=== PATIENT | female | born 1945 | race Caucasian/White ===

== ENCOUNTER 2023-08-22 10:30 | Observation (INO) | payer MEDICARE, SELFPAY ==
[2023-08-22] VITALS (24 sets, daily range): BP systolic 93–153; BP diastolic 51–81; PULSE 60–102; RESP 13–28; TEMP 36.2–36.7; O2SAT 96–100; BMI 16.6
--- NOTE | 2023-08-22 10:45 | DI.RAD.S_ITS ---
PROCEDURE: XR CHEST 1V INDICATIONS: Possible stroke TECHNIQUE: One view of the chest was acquired. COMPARISON: None. on 08/22/2023 at 11:14 FINDINGS: Surgical changes and devices: None. Lungs and pleura: Lungs are clear. No pleural effusions or pneumothorax. Mediastinum: Mediastinal contours appear normal. Heart size is normal. Bones and chest wall: No suspicious bony lesions. Overlying soft tissues appear unremarkable. IMPRESSION: No acute cardiopulmonary abnormality is seen. Approved by: Bailey Urias M.D.,Ph.D. on 08/22/2023 at 11:14
--- NOTE | 2023-08-22 10:45 | DI.CT.S_ITS ---
PROCEDURE: CT STROKE INDICATIONS: Positive BE-FAST, Stroke symptoms TECHNIQUE: Noncontrast 4.5 mm thick angled axial sections acquired from the foramen magnum to the vertex, with coronal reformats. For radiation dose reduction, the following was used: automated exposure control, adjustment of mA and/or kV according to patient size. COMPARISON: None. FINDINGS: Image quality: Diagnostic. CSF spaces: Basal cisterns are patent. No extra-axial fluid collections. Ventricles are normal in size and shape. Brain: No midline shift. No intracranial masses or hemorrhage. No area of hypodensity in a large vascular distribution to suggest acute infarction. Periventricular hypodensity consistent with chronic microvascular ischemic change. Age-related parenchymal loss. Skull and face: Calvarium and visualized facial bones are intact, without suspicious lesions. Sinuses: Visualized sinuses and mastoids are clear. IMPRESSION: No acute intracranial hemorrhage. Comment: Findings were discussed with Chance Finn at 11:05 a.m. This study fulfills neurological imaging criteria for inclusion or exclusion of acute stroke therapies based on available published neurological imaging guidelines. Dictated by: Wero Gallardo M.D. on 08/22/2023 at 11:02 Approved by: Wero Gallardo M.D. on 08/22/2023 at 11:06
--- NOTE | 2023-08-22 10:50 | ED.NEUROSD ---
HPI - Neuro Symptoms/Deficit General Chief Complaint: Neuro Symptoms/Deficit Stated Complaint: Dizzyness, memory loss Time Seen by Provider: 08/22/23 10:50 History of Present Illness HPI Narrative: 78-year-old female with no prior history of stroke, no chronic anticoagulation, was talking on the phone with people this morning, 830 this morning phone call apparently went well, but a subsequent phone call possibly 930 this morning apparently they had concerns and asked her to seek help, she walked next door to talk with her neighbor who is here to give history, that was proximally 10 10 this morning, neighbor thought that she had pretty clear speech, no weakness, but did seem to have some confusion about the events that happened earlier this morning, with regard to memory and what actually happened. Patient denies any trouble with speaking at this time, no trouble swallowing, no numbness to face arm or leg. She had some sensation in her left lower face that ?does not feel right? but did not feel that it was tingling or numb or weak. The quality of her speech seemed okay to her neighbor, no slurred speech, though the neighbor did volunteer that patient seemed distressed about not being able to remember the sequence of what was happening earlier today. No shaking or incontinence or seizure activity known. No fever chills, no cough or shortness of breath. Related Data Home Medications Medication Instructions Recorded Confirmed No Known Home Medications 08/22/23 08/22/23 Allergies Allergy/AdvReac Type Severity Reaction Status Date / Time gluten Allergy Verified 08/22/23 11:01 Patient History Social History household members: none Smoking Status: Former smoker Exam Narrative Exam Narrative: GENERAL: Well-developed patient, in mild distress. HEAD: Atraumatic. Normocephalic. EYES: Pupils equal round and reactive. Extraocular motions intact. No scleral icterus. No injection or drainage. ENT: Nose without bleeding, purulent drainage. Throat without erythema, tonsillar hypertrophy or exudate. Airway patent. NECK: Trachea midline. Non tender CARDIOVASCULAR: Regular rate and rhythm without murmurs, gallops, or rubs. RESPIRATORY: Clear to auscultation. Breath sounds equal bilaterally. No wheezes, rales, or rhonchi. GASTROINTESTINAL: Abdomen soft, non-tender, nondistended. EXTREMITIES: No edema or joint tenderness. BACK: Nontender without deformity or crepitance. No flank tenderness. NEURO: AOx3. Cranial nerves intact, pupils equal round reactive to light, no visual field deficits obvious, extraocular muscle intact, motor 5/5 facial upper extremities and lower extremities. Qxusrc-sg-yigw testing normal. Patient was able to name objects, recall 3 objects, perform serial 7. SKIN: No rash or erythema of visible areas Initial Vital Signs Initial Vital Signs: Vital Signs Temperature 98.0 F 08/22/23 10:35 Pulse Rate 102 H 08/22/23 10:35 Respiratory Rate 18 08/22/23 10:35 Blood Pressure 139/71 08/22/23 10:35 Pulse Oximetry 99 08/22/23 10:35 Oxygen Delivery Method Room Air 08/22/23 10:35 Course Orders Ordered: Acetaminophen (Acetaminophen 325 Mg Tablet) 650 mg PO Q6H PRN PRN Reason: Fever/Mild Pain (1-3) Aspirin (Aspirin Ec 81 Mg Tablet) 81 mg PO DAILY [facility] Atorvastatin Calcium (Atorvastatin 20 Mg Tablet) 20 mg PO BEDTIME [facility] Last Admin: 08/22/23 20:11 Dose: 20 mg Documented By: VIJAYA Heparin Sodium (Porcine) (Heparin 5,000 Unit/Ml Vial) 5,000 unit SUBCUT BID [facility] Last Admin: 08/22/23 20:11 Dose: 5,000 unit Documented By: VIJAYA Naloxone HCl (Naloxone 0.4 Mg/Ml Vial) 0.2 mg IV Q2MIN PRN PRN Reason: Opiate Reversal Ondansetron HCl (Ondansetron 4 Mg/2 Ml Inj) 4 mg IV NOW PRN PRN Reason: Nausea And Vomiting Ondansetron HCl (Ondansetron 4 Mg Odt) 4 mg SL NOW PRN PRN Reason: Nausea And Vomiting Discontinued Medications Aspirin (Aspirin Ec 325 Mg Tablet) 325 mg PO NOW ONE Stop: 08/22/23 13:00 Last Admin: 08/22/23 13:53 Dose: 325 mg Documented By: KATLYN Vital Signs Vital signs: Vital Signs - 8 hr 08/22/23 10:35 08/22/23 10:48 08/22/23 11:03 Temperature 98.0 F Pulse Rate 102 H 97 H 98 H Respiratory Rate 18 14 Blood Pressure 139/71 Pulse Oximetry 99 100 Oxygen Delivery Method Room Air 08/22/23 11:04 08/22/23 11:04 08/22/23 11:05 Temperature Pulse Rate 98 H Respiratory Rate 20 Blood Pressure 147/76 H 153/70 H Pulse Oximetry 100 Oxygen Delivery Method 08/22/23 11:05 08/22/23 11:10 08/22/23 11:10 Temperature Pulse Rate 100 H 95 H Respiratory Rate 19 28 H Blood Pressure 145/71 H Pulse Oximetry 100 100 Oxygen Delivery Method 08/22/23 11:15 08/22/23 11:15 08/22/23 11:20 Temperature Pulse Rate 95 H Respiratory Rate 23 Blood Pressure 141/71 H 136/74 Pulse Oximetry 100 Oxygen Delivery Method 08/22/23 11:20 08/22/23 11:25 08/22/23 11:25 Temperature Pulse Rate 91 H 92 H Respiratory Rate 13 16 Blood Pressure 132/77 Pulse Oximetry 100 98 Oxygen Delivery Method 08/22/23 11:30 08/22/23 11:30 08/22/23 11:35 Temperature Pulse Rate 79 Respiratory Rate 18 Blood Pressure 133/72 139/75 Pulse Oximetry 100 Oxygen Delivery Method 08/22/23 11:35 08/22/23 11:40 08/22/23 11:40 Temperature Pulse Rate 71 75 Respiratory Rate 24 21 Blood Pressure 132/65 Pulse Oximetry 99 99 Oxygen Delivery Method 08/22/23 11:45 08/22/23 11:45 08/22/23 11:50 Temperature Pulse Rate 81 80 Respiratory Rate 18 Blood Pressure 132/74 Pulse Oximetry 100 100 Oxygen Delivery Method 08/22/23 11:50 08/22/23 11:55 08/22/23 11:55 Temperature Pulse Rate 78 Respiratory Rate 27 H Blood Pressure 141/80 H 143/69 H Pulse Oximetry Oxygen Delivery Method 08/22/23 12:00 08/22/23 12:07 08/22/23 12:07 Temperature Pulse Rate 76 79 Respiratory Rate 18 Blood Pressure 146/70 H Pulse Oximetry 99 Oxygen Delivery Method 08/22/23 12:30 08/22/23 13:00 Temperature Pulse Rate 71 70 Respiratory Rate 19 19 Blood Pressure Pulse Oximetry 99 98 Oxygen Delivery Method MDM - Neuro Symptoms/Deficit Medical Records Attestation: I reviewed the patient's medical records. Lab Data Attestation: I reviewed the patient's lab results. 08/22/23 10:50 08/22/23 10:50 Labs: Lab Results 08/22/23 08/22/23 Range/Units 10:50 12:20 WBC 4.3 L (4.5-11.0) X10^3/uL RBC 4.07 (4.0-5.2) X10^6/uL Hgb 13.0 (12.0-16.0) g/dL Hct 38.5 (36-46) % MCV 94.7 (80-100) fL MCH 32.0 (26-34) PG MCHC 33.8 (30-36) % RDW 13.5 (11.6-14.8) % Plt Count 270 (150-400) X10^3/uL Neut % (Auto) 54.2 (50-75) % Lymph % (Auto) 29.0 (25-40) % [place] % (Auto) 13.2 (3-14) % Eos % (Auto) 2.3 (2-4) % Baso % (Auto) 1.3 (0-2) % Neut # (Auto) 2300 (9077-1623) /uL Lymph # (Auto) 1200 (2304-6415) /uL [place] # (Auto) 600 (0-900) /uL Eos # (Auto) 100 (0-450) /uL Baso # (Auto) 100 (0-100) /uL PT 11.7 (9.4-12.5) SECONDS INR 1.0 (0.9-1.3) APTT 32 (25.1-36.5) SECONDS Sodium 137 (137-145) mmol/L Potassium 3.4 (3.4-5.1) mmol/L Chloride 105 (98-107) mmol/L Carbon Dioxide 28 (22-32) mmol/L BUN 18 H (7-17) mg/dL Creatinine 0.66 (0.52-1.04) mg/dL Estimated GFR > 60 (>60) mL/min BUN/Creatinine Ratio 27.3 H (6-22) Glucose 130 H (80-110) mg/dL Calcium 9.2 (8.4-10.2) mg/dL Magnesium 1.9 (1.6-2.3) mg/dL Total Bilirubin 1.2 (0.2-1.3) mg/dL AST 36 (14-36) IU/L ALT 25 (<35) IU/L Alkaline Phosphatase 63 (38-126) U/L Total Creatine Kinase 68 (30-135) U/L Troponin I < 0.012 (0.01-0.034) ng/mL Total Protein 6.9 (6.3-8.2) g/dL Albumin 4.3 (3.5-5.0) g/dL Globulin 2.6 (1.7-4.1) g/dL Albumin/Globulin Ratio 1.7 (1.0-2.8) U Opiates 300ng/mL cut Negative (Negative) Ur Oxycodone Screen Negative (Negative) Urine Methadone Screen Negative (Negative) Ur Barbiturates Screen Negative (Negative) U Tricyclic Antidepress Negative (Negative) Ur Phencyclidine Scrn Negative (Negative) Ur Amphetamines Screen Negative (Negative) U Methamphetamines Scrn Negative (Negative) Ur MDMA Scrn (Ecstasy) Negative (Negative) U Benzodiazepines Scrn Negative (Negative) Urine Cocaine Screen Negative (Negative) U Marijuana (THC) Screen Positive H (Negative) Urine pH Normal (Normal) Urine Specific [place] Normal (Normal) Ur Creatinine Normal (Normal) Point of Care Testing Glucose POC 116 Imaging Data Chest x-ray: Radiologist's Impression: [address] [address] XRay Report Signed Patient: Angelique Arellano MR#: [id number] : 1945 Acct:[id number] Age/Sex: 78 / F Date of Service: 08/22/23 Loc: ED Accession Number: [id number] Procedure: XR chest 1V Ordering Provider: Chance Finn MD PROCEDURE: XR CHEST 1V INDICATIONS: Possible stroke TECHNIQUE: One view of the chest was acquired. COMPARISON: None. on 08/22/2023 at 11:14 FINDINGS: Surgical changes and devices: None. Lungs and pleura: Lungs are clear. No pleural effusions or pneumothorax. Mediastinum: Mediastinal contours appear normal. Heart size is normal. Bones and chest wall: No suspicious bony lesions. Overlying soft tissues appear unremarkable. IMPRESSION: No acute cardiopulmonary abnormality is seen. Approved by: Bailey Urias M.D.,Ph.D. on 08/22/2023 at 11:14 CT scan - head: Radiologist's Impression: [address] [address] [address] Scan Report Signed Patient: Angelique Arellano MR#: [id number] : 1945 Acct:[id number] Age/Sex: 78 / F Date of Service: 08/22/23 Loc: ED Accession Number: [id number] Procedure: CT Stroke Ordering Provider: Chance Finn MD PROCEDURE: CT STROKE INDICATIONS: Positive BE-FAST, Stroke symptoms TECHNIQUE: Noncontrast 4.5 mm thick angled axial sections acquired from the foramen magnum to the vertex, with coronal reformats. For radiation dose reduction, the following was used: automated exposure control, adjustment of mA and/or kV according to patient size. COMPARISON: None. FINDINGS: Image quality: Diagnostic. CSF spaces: Basal cisterns are patent. No extra-axial fluid collections. Ventricles are normal in size and shape. Brain: No midline shift. No intracranial masses or hemorrhage. No area of hypodensity in a large vascular distribution to suggest acute infarction. Periventricular hypodensity consistent with chronic microvascular ischemic change. Age-related parenchymal loss. Skull and face: Calvarium and visualized facial bones are intact, without suspicious lesions. Sinuses: Visualized sinuses and mastoids are clear. IMPRESSION: No acute intracranial hemorrhage. Comment: Findings were discussed with Chance Finn at 11:05 a.m. This study fulfills neurological imaging criteria for inclusion or exclusion of acute stroke therapies based on available published neurological imaging guidelines. Dictated by: Wero Gallardo M.D. on 08/22/2023 at 11:02 Approved by: Wero Gallardo M.D. on 08/22/2023 at 11:06 C: Radiologist's Impression: [address] [address] [address] Scan Report Signed Patient: Angelique Arellano MR#: [id number] : 1945 Acct:[id number] Age/Sex: 78 / F Date of Service: 08/22/23 Loc: ED Accession Number: [id number] Procedure: CT angio head and neck Ordering Provider: Chance Finn MD PROCEDURE: CT ANGIO HEAD AND NECK INDICATIONS: Code stroke TECHNIQUE: After the administration of intravenous contrast, 1 mm thick sections acquired from the aortic arch through the [place]. 3-dimensional xqhheod-cyqvfyxli-mvqkiuftrk (MIP) and/or volume rendering reformats were acquired of the central intracranial vasculature and neck separately. For radiation dose reduction, the following was used: automated exposure control, adjustment of mA and/or kV according to patient size. COMPARISON: CT noncontrast head 08/22/2023. FINDINGS: Image quality: Diagnostic. BRAIN: CSF spaces: Ventricles are normal in size and shape. Basal cisterns are patent. No extra-axial fluid collections. Brain: No significant abnormality of the brain can be seen. Skull and face: Calvarium and facial bones appear intact, without suspicious lesions. Orbits appear normal. Sinuses: Sinuses and mastoids are clear. HEAD CT ANGIOGRAPHY: Anterior circulation: Intracranial internal carotid arteries are normal in size and flow. The flow within the paired anterior cerebral arteries is normal and symmetric. The flow within the middle cerebral arteries is normal and symmetric. The anterior communicating artery is seen. No aneurysms are seen. Posterior circulation: Visualized portions of the vertebral arteries demonstrate normal caliber, and join to form a normal appearing basilar artery. Flow within the posterior cerebral arteries is normal and symmetric. No aneurysms are seen. NECK CT ANGIOGRAPHY: Carotid system: The great vessels demonstrate a conventional anatomy as they arise from the aortic arch. The origins of the common carotid arteries appear patent. The common carotid arteries demonstrate normal caliber and courses. The bifurcation regions are both widely patent. The internal carotid arteries demonstrate normal calibers and courses. Posterior circulation: The origins of the vertebral arteries both appear widely patent. The more superior extracranial portions of both vertebral arteries also demonstrate normal courses and calibers. They join to form a normal appearing basilar artery. Soft tissues: Visualized neck soft tissues demonstrate no suspicious abnormalities. Bones: No suspicious bony lesions. Visualized cervical spine appears normally aligned. IMPRESSION: No significant intracranial arterial abnormality is seen. No significant abnormality is seen within the arteries of the neck. Any quantitative measurements of stenosis were performed using NASCET criteria. Approved by: Bailey Urias M.D.,Ph.D. on 08/22/2023 at 11:20 ECG Data Attestation: I personally reviewed and interpreted this ECG as follows: Interpretation: Normal sinus rhythm with rate of 90, no obvious ST segment elevation or depression changes. Normal MS, QRS, QTC intervals. MDM Narrative Medical decision making narrative: 78-year-old female with multiple recent stressors, had some difficulty speaking on the phone with a friend after speaking with her sister earlier, then walked over to her neighbor's house, seemed confused about the order of events, but no difficulty with speech noted by the neighbor, here for further evaluation. No focal weakness, no focal numbness. CT head noncontrast, no acute changes, see radiology report. CTA head and neck vessels, no thromboses or stenoses, see radiology report. Case discussed with Neurology Dr Kim Pérez, who will review images and interview patient 1210, case discussed with Neurology Dr. Kim Pérez, who was able to review images, saw patient, found that there are old appearing white matter changes, could appear from old stroke, could be hypertension related, would advise admission for further workup brain MRI, TTE with bubble study, cardiac Holter monitoring as an outpatient, hemoglobin A1c, fasting lipids, BNP. Start aspirin. We will contact hospitalist regarding admission Critical Care Time Critical Care Time Critical Care Time: Yes Total Critical Care Time: 35 Attestation: The high probability of a clinically significant, sudden or life threatening deterioration of the [neuro, cerebrovascular] system(s) required my full and direct attention, intervention and personal management. The aggregate critical care time was [35] minutes. This time is in addition to time spent performing reported procedures but includes the following: [x] Data Review and interpretation [x] Patient assessment and monitoring of vital signs [x] Documentation [x] Medication orders and management Discharge Plan Departure Patient Disposition: Admitted as Observation Clinical Impression: Transient cerebral ischemia Admit Date/Time: 08/22/23 13:28 Admit Provider: Puneet Almeida
[2023-08-22 10:56] LABS: Add Manual Diff / Slide Review NO; Basophils Absolute Auto 100 /uL (0-100); Basophils Percent Auto 1.3 % (0-2); Eosinophils Absolute Auto 100 /uL (0-450); Eosinophils Percent Auto 2.3 % (2-4); Hematocrit 38.5 % (36-46); Lymphocytes Absolute Auto 1200 /uL (1100-4500); Mean Corpuscular HGB Conc 33.8 % (30-36); Mean Corpuscular Volume 94.7 fL (80-100); Monocytes Absolute Auto 600 /uL (0-900); Monocytes Percent Auto 13.2 % (3-14); Neutrophils Absolute Auto 2300 /uL (1500-7000); Neutrophils Percent Auto 54.2 % (50-75); Platelet Count 270 X10^3/uL (150-400); Red Blood Cell Count 4.07 X10^6/uL (4.0-5.2); Red Cell Distribution Width 13.5 % (11.6-14.8); White Blood Cell Count 4.3 X10^3/uL (4.5-11.0)
[2023-08-22 11:03] LABS: Prothrombin Time 11.7 SECONDS (9.4-12.5)
[2023-08-22 11:05] LABS: PTT Partial Thromboplastin Tim 32 SECONDS (25.1-36.5)
[2023-08-22 11:12] LABS: Alanine Aminotransferase 25 IU/L (<35); Albumin 4.3 g/dL (3.5-5.0); Albumin Globulin Ratio 1.7 (1.0-2.8); Alkaline Phosphatase 63 U/L (38-126); Aspartate Aminotransferase 36 IU/L (14-36); BUN Creatinine Ratio 27.3 (6-22); Bilirubin Total 1.2 mg/dL (0.2-1.3); Blood Urea Nitrogen 18 mg/dL (7-17); Calcium 9.2 mg/dL (8.4-10.2); Carbon Dioxide 28 mmol/L (22-32); Chloride 105 mmol/L (98-107); Creatine Kinase 68 U/L (30-135); Estimated Glomerular Filt Rate > 60 mL/min (>60); Globulin 2.6 g/dL (1.7-4.1); Glucose 130 mg/dL (80-110); HEMOLYSIS < 15 (0-50); Magnesium 1.9 mg/dL (1.6-2.3); Potassium 3.4 mmol/L (3.4-5.1); Sodium 137 mmol/L (137-145); Total Protein 6.9 g/dL (6.3-8.2)
[2023-08-22 11:23] LABS: Troponin I < 0.012 ng/mL (0.01-0.034)
[2023-08-22 12:42] LABS: UR Morphine/Opiate cutoff 300 Negative (Negative); Ur Creatinine Normal (Normal); Ur Specific Gravity Normal (Normal); Urine Amphetamines Negative (Negative); Urine Barbiturates Negative (Negative); Urine Benzodiazepines Negative (Negative); Urine Cocaine Negative (Negative); Urine MDMA Negative (Negative); Urine Methadone Negative (Negative); Urine Methamphetamines Negative (Negative); Urine Oxycodone Negative (Negative); Urine Phencyclidine Negative (Negative); Urine Tetrahydrocannabinol Positive (Negative); Urine Tricyclic Antidepressant Negative (Negative); Urine pH Normal (Normal)
[2023-08-22] MEDS: ASPIRIN EC 325 MG TABLET PO (13:53)
--- NOTE | 2023-08-22 15:18 | DI.MRI.S_ITS ---
PROCEDURE: MR HEAD/BRAIN WO CON INDICATIONS: TIA (aphasia) TECHNIQUE: Non-contrast axial T1 spin echo, axial T2 fast spin echo, sagittal and axial FLAIR, coronal T2 fast spin echo, axial gradient echo, axial diffusion and ADC through the brain. COMPARISON: CT noncontrast head 08/22/2023, CT angiogram head and neck 08/22/2023. FINDINGS: Image quality: Diagnostic. CSF spaces: Ventricles appear symmetric in size and shape. Basal cisterns are patent. No extra-axial fluid collections. Brain: No intracranial bleeds or mass effects. There is cerebral volume loss for age. There are periventricular and deep white matter chronic small vessel ischemic changes. Brainstem appears normal. Diffusion-weighted images show no acute infarct. No chronic ischemic insults. Normal intravascular flow voids are present. Skull and face: Calvarial bone marrow is normal in signal. Orbits are normal. Sinuses: Sinuses and mastoids are clear. IMPRESSION: No acute intracranial abnormality. Approved by: Bailey Urias M.D.,Ph.D. on 08/22/2023 at 16:09
--- NOTE | 2023-08-22 15:19 | DI.ECHO.S_ITS ---
[facility]+ [facility] : : [address] : : [place] : : [id number] : : Phone: [phone] Echocardiogram Report + + :Name: SRINI VICENTE Study Date: 08/22/2023 Height: 65 in : :[facility] ReadingLocation: Weight: 100 lb : : Gender: Female BSA: 1.5 m2 : :: 1945 Age: 78 yrs BP: 127/65 mmHg: :Reason For Study: TIA : :Ordering Physician: RANGEL, : :BILL Still Performed By: Sean Mcmanus : :Referring: BILL MULTANI : + + Interpretation Summary Normal sinus rhythm. Normal LV size and wall thickness. Normal wall motion and LV systolic function. Ejection fraction 60-65%. Normal chamber sizes. No significant valvular abnormalities. No source of embolism identified. Procedure: A two-dimensional transthoracic echocardiogram with color flow and Doppler was performed. The study quality was technically adequate. Most of the acoustic windows were suboptimal, but the best imaging was obtained from the subcostal window. The patient was in sinus rhythm with heart rates between 65-70 bpm during the exam. Left Ventricle: The left ventricle is normal in size and wall thickness. The ejection fraction is estimated to be 60-65%. Right Ventricle: The right ventricle is normal size. The right ventricular systolic function is normal. Atria: The left atrial size is normal. The right atrium is normal in size. The interatrial septum grossly appears intact with no obvious evidence for an atrial septal defect. Mitral Valve: The mitral valve is normal. There is no mitral valve stenosis. There is trace mitral regurgitation. Aortic Valve: The aortic valve is trileaflet. There is no aortic valve stenosis. No aortic regurgitation is present. Tricuspid Valve: The tricuspid valve is normal. There is no tricuspid stenosis. There is mild tricuspid regurgitation. The right ventricular systolic pressure is estimated to be at least 26.4 mmHg based on an estimated right atrial pressure of 8 mm Hg. Pulmonic Valve: The pulmonic valve is not well visualized. There is no pulmonic valvular stenosis. There is a trace or physiologic amount of pulmonic regurgitation. Great Vessels: The aortic root is normal size. The ascending aorta could not be visualized. The IVC is dilated (diameter is greater than 2.1 cm) yet it collapses greater than 50% with a sniff. This suggests a right atrial pressure of 8 mm Hg. A mass or thrombus appeared to be present in the inferior vena cava. Pericardium/ Pleura There is no pericardial effusion. There is no pleural effusion. MMode/2D Measurements & Calculations LVIDd: 4.1 cm LVOT diam: 1.8 cm LVIDs: 2.7 cm Ao root diam: 3.2 cm FS: 34.4 % asc Aorta Diam: 3.0 cm IVSd: 0.82 cm LVPWd: 0.90 cm LV ayala. diameter/BSA (cm/m^2): 2.8 LV sys. diameter/BSA (cm/m^2): 1.8 LA A2 area: 10.6 cm2 RA long axis: 4.4 cm LA A4 area: 12.2 cm2 RA area: 15.9 cm2 LA length (vol): 4.4 cm RA vol: 48.1 ml LA vol: 24.8 ml RA : 32.6 ml/m2 LA vol index: 16.8 ml/m2 IVC diam: 2.2 cm RVD1 (basal): 3.1 cm RVD2 (mid): 2.5 cm TAPSE: 2.8 cm Doppler Measurements & Calculations Ao V2 max: 118.1 cm/sec LVOT Max Jeff: 80.8 cm/sec Ao V2 mean: 85.1 cm/sec LV V1 max P.6 mmHg Ao max P.6 mmHg LV V1 VTI: 18.6 cm Ao mean P.1 mmHg SELAM(I,D): 1.9 cm2 Ao V2 VTI: 25.9 cm SELAM(V,D): 1.8 cm2 sev ratio: 0.72 SELAM indexed to BSA (cm^2/m^2): 1.3 MV E max jeff: 79.5 cm/sec TR max jeff: 214.2 cm/sec MV A max jeff: 71.9 cm/sec TR max P.4 mmHg MV E/A: 1.1 PA V2 max: 69.4 cm/sec MV dec time: 0.25 sec PA V2 mean: 51.2 cm/sec PA mean P.1 mmHg PA pr(Accel): 44.7 mmHg SV(LVOT): 49.1 ml Electronically signed by: Bryanna Ibarra M.D. on Reading Physician:08/22/2023 06:21 PM
--- NOTE | 2023-08-22 15:38 | PM.HP.1 ---
History of Present Illness History of Present Illness Date Patient Seen: 08/22/23 Chief complaint: Dizzyness, memory loss Narrative: From ED doctor: 78-year-old female with no prior history of stroke, no chronic anticoagulation, was talking on the phone with people this morning, 830 this morning phone call apparently went well, but a subsequent phone call possibly 930 this morning apparently they had concerns and asked her to seek help, she walked next door to talk with her neighbor who is here to give history, that was proximally 10 10 this morning, neighbor thought that she had pretty clear speech, no weakness, but did seem to have some confusion about the events that happened earlier this morning, with regard to memory and what actually happened. Patient denies any trouble with speaking at this time, no trouble swallowing, no numbness to face arm or leg. She had some sensation in her left lower face that ?does not feel right? but did not feel that it was tingling or numb or weak. The quality of her speech seemed okay to her neighbor, no slurred speech, though the neighbor did volunteer that patient seemed distressed about not being able to remember the sequence of what was happening earlier today. No shaking or incontinence or seizure activity known. No fever chills, no cough or shortness of breath. Additional information: [facility] Social History Smoking Status: Former smoker Meds Home Medications and Allergies Home Medications Medication Instructions Recorded Confirmed Type No Known Home Medications 08/22/23 08/22/23 History Allergies Allergy/AdvReac Type Severity Reaction Status Date / Time gluten Allergy Verified 08/22/23 11:01 Review of Systems Review of Systems Narrative: All else reviewed and otherwise unremarkable except as noted in the history and physical. Exam Vital Signs (past 8 hours): - 08/22/23 10:35 08/22/23 10:48 08/22/23 11:03 Temperature 98.0 F Pulse Rate 102 H 97 H 98 H Respiratory Rate 18 14 Blood Pressure 139/71 Pulse Oximetry 99 100 Oxygen Delivery Method Room Air Oxygen Flow Rate 08/22/23 11:04 08/22/23 11:04 08/22/23 11:05 Temperature Pulse Rate 98 H Respiratory Rate 20 Blood Pressure 147/76 H 153/70 H Pulse Oximetry 100 Oxygen Delivery Method Oxygen Flow Rate 08/22/23 11:05 08/22/23 11:10 08/22/23 11:10 Temperature Pulse Rate 100 H 95 H Respiratory Rate 19 28 H Blood Pressure 145/71 H Pulse Oximetry 100 100 Oxygen Delivery Method Oxygen Flow Rate 08/22/23 11:15 08/22/23 11:15 08/22/23 11:20 Temperature Pulse Rate 95 H Respiratory Rate 23 Blood Pressure 141/71 H 136/74 Pulse Oximetry 100 Oxygen Delivery Method Oxygen Flow Rate 08/22/23 11:20 08/22/23 11:25 08/22/23 11:25 Temperature Pulse Rate 91 H 92 H Respiratory Rate 13 16 Blood Pressure 132/77 Pulse Oximetry 100 98 Oxygen Delivery Method Oxygen Flow Rate 08/22/23 11:30 08/22/23 11:30 08/22/23 11:35 Temperature Pulse Rate 79 Respiratory Rate 18 Blood Pressure 133/72 139/75 Pulse Oximetry 100 Oxygen Delivery Method Oxygen Flow Rate 08/22/23 11:35 08/22/23 11:40 08/22/23 11:40 Temperature Pulse Rate 71 75 Respiratory Rate 24 21 Blood Pressure 132/65 Pulse Oximetry 99 99 Oxygen Delivery Method Oxygen Flow Rate 08/22/23 11:45 08/22/23 11:45 08/22/23 11:50 Temperature Pulse Rate 81 80 Respiratory Rate 18 Blood Pressure 132/74 Pulse Oximetry 100 100 Oxygen Delivery Method Oxygen Flow Rate 08/22/23 11:50 08/22/23 11:55 08/22/23 11:55 Temperature Pulse Rate 78 Respiratory Rate 27 H Blood Pressure 141/80 H 143/69 H Pulse Oximetry Oxygen Delivery Method Oxygen Flow Rate 08/22/23 12:00 08/22/23 12:07 08/22/23 12:07 Temperature Pulse Rate 76 79 Respiratory Rate 18 Blood Pressure 146/70 H Pulse Oximetry 99 Oxygen Delivery Method Oxygen Flow Rate 08/22/23 12:30 08/22/23 13:00 08/22/23 13:30 Temperature Pulse Rate 71 70 71 Respiratory Rate 19 19 21 Blood Pressure 126/81 Pulse Oximetry 99 98 98 Oxygen Delivery Method Room Air Oxygen Flow Rate 08/22/23 13:55 08/22/23 13:55 08/22/23 14:45 Temperature 97.4 F L Pulse Rate 83 74 Respiratory Rate 24 16 Blood Pressure 126/81 127/65 Pulse Oximetry 99 99 Oxygen Delivery Method Oxygen Flow Rate 08/22/23 14:45 Temperature 97.4 F L Pulse Rate 74 Respiratory Rate 16 Blood Pressure 127/65 Pulse Oximetry 99 Oxygen Delivery Method Oxygen Flow Rate 0 Oxygen Delivery Method Room Air Oxygen Flow Rate 0 Narrative Exam Narrative: NAD, alert and oriented, fluent speech, calm. Normocephalic skull, EOMI, anicteric sclera, symmetric pupils. Oropharynx unremarkable, no droop. Neck supple, midline trachea, no adenopathy. Lungs clear, normal rate and effort. Heart regular, no murmur gallop or rub. Abdomen is soft, non distended and non tender. Extremities are free of edema. Skin is free of rash or lesions. Joints are not swollen or deformed. Judgment appears to be normal. Objective ECG Impression: NSR Imaging CT scan - head: Radiologist's impression: CT brain: No acute intracranial hemorrhage. Comment: Findings were discussed with Chance Finn at 11:05 a.m. This study fulfills neurological imaging criteria for inclusion or exclusion of acute stroke therapies based on available published neurological imaging guidelines. CTA: No significant intracranial arterial abnormality is seen. No significant abnormality is seen within the arteries of the neck. Chest x-ray: Radiologist's impression: No acute cardiopulmonary abnormality is seen. Labs 08/22/23 10:50 08/22/23 10:50 Labs: Laboratory Results - last 24 hr 08/22/23 08/22/23 10:50 12:20 WBC 4.3 L RBC 4.07 Hgb 13.0 Hct 38.5 MCV 94.7 MCH 32.0 MCHC 33.8 RDW 13.5 Plt Count 270 Neut % (Auto) 54.2 Lymph % (Auto) 29.0 [place] % (Auto) 13.2 Eos % (Auto) 2.3 Baso % (Auto) 1.3 Neut # (Auto) 2300 Lymph # (Auto) 1200 [place] # (Auto) 600 Eos # (Auto) 100 Baso # (Auto) 100 PT 11.7 INR 1.0 APTT 32 Sodium 137 Potassium 3.4 Chloride 105 Carbon Dioxide 28 BUN 18 H Creatinine 0.66 Estimated GFR > 60 BUN/Creatinine Ratio 27.3 H Glucose 130 H Calcium 9.2 Magnesium 1.9 Total Bilirubin 1.2 AST 36 ALT 25 Alkaline Phosphatase 63 Total Creatine Kinase 68 Troponin I < 0.012 Total Protein 6.9 Albumin 4.3 Globulin 2.6 Albumin/Globulin Ratio 1.7 U Opiates 300ng/mL cut Negative Ur Oxycodone Screen Negative Urine Methadone Screen Negative Ur Barbiturates Screen Negative U Tricyclic Antidepress Negative Ur Phencyclidine Scrn Negative Ur Amphetamines Screen Negative U Methamphetamines Scrn Negative Ur MDMA Scrn (Ecstasy) Negative U Benzodiazepines Scrn Negative Urine Cocaine Screen Negative U Marijuana (THC) Screen Positive H Urine pH Normal Urine Specific [place] Normal Ur Creatinine Normal Assessment & Plan Assessment & Plan narrative: 1. Transient confusion and possible speech difficulties, resolved upon presentation. 2. Ovarian cyst, presnt on admission and stable. PLAN: -MRI brain r/o CVA -ECHO r/o clot, PFO. -telemetry.
--- NOTE | 2023-08-22 15:54 | PT.IIE ---
Physical Therapy Inpatient Evaluation/Re-Eval M1 PT/OT-IP Prior Functional Status Start: 08/22/23 15:23 Freq: NEEDED Status: Active Protocol: Document 08/22/23 15:15 MB (Rec: 08/22/23 15:54 MB [id number]) Medical Review Prior Functional Status Medical History Reviewed Yes Diet/Fluid Consistency Regular Communication WNLs Mobility and Gait I Activities of Daily Living and IADL's I Prior Functional Level (Other details) I Social History Household Members none Number of Floors (Floors) Two Floors Number of Stairs To Enter/Railing? Pt lives in town house in [facility] [address] [facility] and she has two floors, left rail Home Environment Standard Height Toilet,Walk in Shower,Tub/Shower Employment Status Retired Additional Social History Comment Pt is very active, bikes and hikes M2 PT-IP Current Condition Start: 08/22/23 15:23 Freq: NEEDED Status: Active Protocol: Document 08/22/23 15:15 MB (Rec: 08/22/23 15:54 [id number]) Physical Therapy Current Condition Current Condition Evaluation Date 08/22/23 Treatment Diagnosis Cognitive changes M3 PT-IP Subjective Start: 08/22/23 15:23 Freq: NEEDED Status: Active Protocol: Document 08/22/23 15:15 MB (Rec: 08/22/23 15:54 MB [id number]) Subjective Physical Therapy Visit Type Type Initial Evaluation Visit Start Time 15:15 Visit Stop Time 15:30 Number of EQUINE VET Visits 0 Physical Therapy Visit Comments Patient Comments Pt states she has no further complaints but she is concernd about her cognitive changes that happened this morning. She denies dizziness. She states that she has been under a lot of stress as she has a total hysterectomy scheduled in a week and a half d/t ovarian cyst on the left. She feels that in general, she manages her stress well. Therapy Pain Assessment Pain When Pain Assessed At Rest Pain Present Pain Present Denied Pain M4 PT-IP Mobility and Gait Start: 08/22/23 15:23 Freq: NEEDED Status: Active Protocol: Document 08/22/23 15:15 MB (Rec: 08/22/23 15:54 [id number]) PT-Bed Mobility Assessment Rolling Level of Assist Independent Supine to Sit Supine to Sit Independent Scooting Scooting to Edge of Bed Independent Scooting Up and Down in Bed Independent PT-Transfer Assessment Sit to and From Stand Sit to and from Stand Independent Equipment Transfer Assistive Device Gait Belt Orthotic/Prosthetic Devices or Brace: No Transfers Transfer Destination Toilet Transfer Technique Ambulation Transfer Ability Level of Assist Independent Gait Assessment Gait Gait Assistance Required: Independent Distance (Feet) 100 Able to Maintain Weight Bearing Status Yes During Gait Assistive Devices Assistive Device Gait Belt Orthotic/Prosthetic Devices or Brace: No Gait Deviations General Gait Pattern Within Normal Limits Comments Gait Comments Forward, backward, gait with EC, turning, steps all I and no LOB Stair Climbing Assessment Evaluation Level of Assist On Stairs Independent Devices Stair Climbing Assistive Devices Left Railing Technique/Endurance Stair Climbing Direction Ascend and Descend Stair Climbing Technique Step Over Step Number of Steps Climbed 3 Query Text: Stair Climbing Set # Repetitions (reps) 2 PT-Balance Assessment Sitting Balance and Reactions Static Sitting Balance Ability Normal Standing Balance and Reactions Static Standing Balance Ability Normal Dynamic Standing Balance Ability Normal M5 PT-IP Objective Assessments Start: 08/22/23 15:23 Freq: NEEDED Status: Active Protocol: Document 08/22/23 15:15 MB (Rec: 08/22/23 15:54 MB [id number]) Orientation Orientation/Cognition Level of Alertness Alert Orientation Name,Age,Birthday,Month,Date, Year,Day of Week,Place, Situation Language Function Ability No Deficits Noted Safety Awareness Understands Safety Issues Memory Description No Deficits Noted Gross Range of Motion Upper Extremity ROM Assessment Within Functional Limits Lower Extremity ROM Assessment Within Functional Limits Strength Upper Extremity Strength Assessment Within Functional Limits Lower Extremity Strength Assessment Within Functional Limits Coordination Assessment Gross Coordination Gross Coordination WNL Assessment Finger to Nose Test Minimal Impairment Pronation/Supination Test Minimal Impairment Sensation Assessment Sensation Gross Sensation WNL Muscle Tone Muscle Tone WNL Yes M7 PT-IP Assessment and Plan Start: 08/22/23 15:23 Freq: NEEDED Status: Active Protocol: Document 08/22/23 15:15 MB (Rec: 08/22/23 15:54 MB [id number]) PT Summary Assessment and Plan Potential Rehabilitation Potential Excellent Status of Condition at Evaluation Stable Summary Progress Towards Goals Safe For Discharge,Goals Met Assessment Summary Pt is a 78 y/o female who presents with normal mobility, gait and balance. She has mild changes in coordination with UE coordination testing today. No further acute PT needs, d/c PT. Frequency of Treatment Frequency Of Treatment Discharge Weight Bearing Status Weight Bearing Status Weight Bear as Tolerated Recommendations To Nursing Amount of Assist Needed Independent Discharge Recommendations PT Discharge Recommendations Home with Assistance Transportation Needs at Discharge Private Vehicle
[2023-08-22] MEDS: HEPARIN 5,000 UNIT/ML VIAL 5000 UNIT SUBCUT (20:11)
[2023-08-22] MEDS: ATORVASTATIN 20 MG TABLET PO (20:11)
[2023-08-23 03:00] VITALS: BP 97/50; PULSE 71; RESP 16; TEMP 36.3; O2SAT 97
[2023-08-23 05:21] LABS: Add Manual Diff / Slide Review NO; Basophils Absolute Auto 100 /uL (0-100); Basophils Percent Auto 1.4 % (0-2); Eosinophils Absolute Auto 100 /uL (0-450); Hematocrit 36.7 % (36-46); Hemoglobin 12.4 g/dL (12.0-16.0); Lymphocytes Absolute Auto 1200 /uL (1100-4500); Lymphocytes Percent Auto 29.6 % (25-40); Mean Corpuscular HGB Conc 33.8 % (30-36); Mean Corpuscular Hemoglobin 31.9 PG (26-34); Mean Corpuscular Volume 94.4 fL (80-100); Monocytes Absolute Auto 400 /uL (0-900); Monocytes Percent Auto 9.6 % (3-14); Neutrophils Absolute Auto 2300 /uL (1500-7000); Neutrophils Percent Auto 56.4 % (50-75); Platelet Count 254 X10^3/uL (150-400); Red Blood Cell Count 3.89 X10^6/uL (4.0-5.2); Red Cell Distribution Width 13.3 % (11.6-14.8); White Blood Cell Count 4.1 X10^3/uL (4.5-11.0)
[2023-08-23 05:31] LABS: BUN Creatinine Ratio 21.4 (6-22); Blood Urea Nitrogen 15 mg/dL (7-17); Calcium 8.9 mg/dL (8.4-10.2); Carbon Dioxide 28 mmol/L (22-32); Chloride 110 mmol/L (98-107); Estimated Glomerular Filt Rate > 60 mL/min (>60); Glucose 91 mg/dL (80-110); HEMOLYSIS < 15 (0-50); Potassium 3.8 mmol/L (3.4-5.1); Sodium 138 mmol/L (137-145)
--- NOTE | 2023-08-23 08:22 | PM.DS.1 ---
History of Present Illness History of Present Illness Chief complaint: Dizzyness, memory loss Narrative: From ED doctor: 78-year-old female with no prior history of stroke, no chronic anticoagulation, was talking on the phone with people this morning, 830 this morning phone call apparently went well, but a subsequent phone call possibly 930 this morning apparently they had concerns and asked her to seek help, she walked next door to talk with her neighbor who is here to give history, that was proximally 10 10 this morning, neighbor thought that she had pretty clear speech, no weakness, but did seem to have some confusion about the events that happened earlier this morning, with regard to memory and what actually happened. Patient denies any trouble with speaking at this time, no trouble swallowing, no numbness to face arm or leg. She had some sensation in her left lower face that ?does not feel right? but did not feel that it was tingling or numb or weak. The quality of her speech seemed okay to her neighbor, no slurred speech, though the neighbor did volunteer that patient seemed distressed about not being able to remember the sequence of what was happening earlier today. No shaking or incontinence or seizure activity known. No fever chills, no cough or shortness of breath. Additional information: Discharge Providers Provider Date of admission: 08/22/23 13:28 Discharge Date: 08/23/23 Consults: 08/22/23 15:18 Consult to Discharge Planning Routine Comment: Consult to Occupational Therapy Evaluate & Treat Comment: Physician Instructions: Evaluate and treat Consult to Physical Therapy Evaluate & Treat Comment: Physician Instructions: Evaluate and Treat Consult to Speech Therapy Evaluate & Treat Comment: Physician Instructions: Evaluate and treat Discharge provider: Puneet Almeida MD Summary Hospital Course Discharge Diagnosis: 1. Transient confusion and possible speech difficulties, resolved upon presentation. 2. Ovarian cyst, presnt on admission and stable. Hospital Course: She was admitted with a transient episode of confusion lasting for a short time. There is a question of speech issues but this really was not confirmed. She was observed overnight and had no recurrent neurologic symptoms. Evaluation with MRI,, CTA, an echo was unremarkable. They are really isn't enough to support diagnosis of TIA recommendation of aspirin and statin. She is neurologically normal and stable for discharge on August 22. Status at Discharge Cognitive/behavioral status at discharge: oriented Functional status at discharge: independent ambulation Overall status at discharge: patient is back to baseline Time Spent with Patient Time spent: Greater than 30 minutes Exam Vital Signs (past 8 hours): - 08/23/23 03:00 Temperature 97.4 F L Pulse Rate 71 Respiratory Rate 16 Blood Pressure 97/50 L Pulse Oximetry 97 Oxygen Delivery Method Room Air Oxygen Flow Rate 0 Narrative Exam Narrative: No acute distress, breathing comfortably. There was speech is normal. Moving arms and legs normally, no facial droop. Normal judgment, and thought content. Objective Imaging Multiple studies:: Radiologist's impression: CT brain unremarkable CT angiogram of head and neck unremarkable. MRI brain unremarkable. Echo unremarkable, normal EF and no valvular abnormalities. Labs 08/23/23 04:50 08/23/23 04:50 Labs: Laboratory Results - last 24 hr 08/22/23 08/22/23 08/23/23 10:50 12:20 04:50 WBC 4.3 L 4.1 L RBC 4.07 3.89 L Hgb 13.0 12.4 Hct 38.5 36.7 MCV 94.7 94.4 MCH 32.0 31.9 MCHC 33.8 33.8 RDW 13.5 13.3 Plt Count 270 254 Neut % (Auto) 54.2 56.4 Lymph % (Auto) 29.0 29.6 [place] % (Auto) 13.2 9.6 Eos % (Auto) 2.3 3.0 Baso % (Auto) 1.3 1.4 Neut # (Auto) 2300 2300 Lymph # (Auto) 1200 1200 [place] # (Auto) 600 400 Eos # (Auto) 100 100 Baso # (Auto) 100 100 PT 11.7 INR 1.0 APTT 32 Sodium 137 138 Potassium 3.4 3.8 Chloride 105 110 H Carbon Dioxide 28 28 BUN 18 H 15 Creatinine 0.66 0.70 Estimated GFR > 60 > 60 BUN/Creatinine Ratio 27.3 H 21.4 Glucose 130 H 91 Calcium 9.2 8.9 Magnesium 1.9 Total Bilirubin 1.2 AST 36 ALT 25 Alkaline Phosphatase 63 Total Creatine Kinase 68 Troponin I < 0.012 Total Protein 6.9 Albumin 4.3 Globulin 2.6 Albumin/Globulin Ratio 1.7 U Opiates 300ng/mL cut Negative Ur Oxycodone Screen Negative Urine Methadone Screen Negative Ur Barbiturates Screen Negative U Tricyclic Antidepress Negative Ur Phencyclidine Scrn Negative Ur Amphetamines Screen Negative U Methamphetamines Scrn Negative Ur MDMA Scrn (Ecstasy) Negative U Benzodiazepines Scrn Negative Urine Cocaine Screen Negative U Marijuana (THC) Screen Positive H Urine pH Normal Urine Specific [place] Normal Ur Creatinine Normal PFSH Social History household members: none Smoking Status: Former smoker Discharge Assessment & Plan Assessment and Plan Assessment: 1. Transient confusion, resolved. 2. Ovarian cyst, stable. Plan of Treatment: She is stable for discharge and will follow up with PCP as needed. Discharge Plan Discharge Plan Patient Disposition: Home Provider Discharge Comment: Stable for discharge home. No convincing evidence of TIA. Discharge orders & Medications Prescriptions: No Action No Known Home Medications Medication counseling provided by Pharmacist: No Discharge Health Status Multidrug resistant organism: No MDRO Diet/Activity/Treatments Diet: Regular Activity: As tolerated Visit Report/Discharge Packet Stand Alone Forms: Patient Portal/API, Stroke Signs & Symptoms Discharge Data Attending Provider: Puneet Almeida Admit Date/Time: 08/22/23 13:28
[2023-08-23 09:00] VITALS: BP 99/53; PULSE 74; RESP 17; TEMP 36.2; O2SAT 97
--- NOTE | 2023-08-23 09:05 | OT.IP.EVAL ---
Occupational Therapy Inpatient Evaluation/Re-Eval M1 PT/OT-IP Prior Functional Status Start: 08/23/23 08:55 Freq: NEEDED Status: Active Protocol: Document 08/23/23 08:55 [facility] (Rec: 08/23/23 09:05 [facility] [id number]) Medical Review Prior Functional Status Medical History Reviewed Yes Diet/Fluid Consistency Regular Communication WNLs Mobility and Gait I Activities of Daily Living and IADL's I Prior Functional Level (Other details) I Social History Household Members none Number of Floors (Floors) Two Floors Number of Stairs To Enter/Railing? Pt lives in town house in [facility] and she has two floors, left rail Home Environment Standard Height Toilet,Walk in Shower,Tub/Shower Employment Status Retired Additional Social History Comment Pt is very active, bikes and hikes M2 OT-IP Current Condition Start: 08/23/23 08:55 Freq: Status: Active Protocol: Document 08/23/23 08:55 [facility] (Rec: 08/23/23 09:05 [facility] [id number]) Occupational Therapy Current Condition Current Condition Evaluation Date 08/23/23 Treatment Diagnosis Transient confusion Diagnosis Onset Date 08/22/23 M3 OT- IP Subjective and Pain Start: 08/23/23 08:55 Freq: Status: Active Protocol: Document 08/23/23 08:55 [facility] (Rec: 08/23/23 09:05 [facility] [id number]) OT- Subjective Occupational Therapy Visit Type Type Initial Evaluation Visit Start Time 08:45 Visit Stop Time 08:55 Occupational Therapy Visit Comments Patient Comments Pt agreed to do cognitive assessment. Patient/Caregiver Goals TO go home. OT Pain Assessment Pain When Pain Assessed At Rest Pain Present Pain Present Denied Pain M4 OT- IP ADL's Start: 08/23/23 08:55 Freq: Status: Active Protocol: Document 08/23/23 08:55 [facility] (Rec: 08/23/23 09:05 [facility] [id number]) OT [id number] General Evaluation Self-Feeding Ability Independent OT ADL-Grooming General Evaluation Grooming Ability Independent OT ADL-Oral Care General Eval Oral Care Ability Independent OT ADL-Dressing General Eval Upper Body Dressing Ability Independent OT ADL-Toileting General Evaluation Toileting Ability Independent OT ADL-Bathing Comments OT Bathing Comments Pt uses non slip mat in her tub/shower and aware to get equipment as needed. M5 OT- IP IADL's Start: 08/23/23 08:55 Freq: Status: Active Protocol: Document 08/23/23 08:55 [facility] (Rec: 08/23/23 09:05 [facility] [id number]) OT-Instrumental Activities of Daily Living Deficits IADL Deficits Identified No Deficits Home Safety Awareness Awareness of Need for Assistance at Home Good Awareness Ability to Problem Solve Emergency Able to Problem Solve Situations Medication Management Medication Management No Deficits Identified Money Management Money Management No Deficits Identified Meal Preparation Meal Preparation No Deficits Identified Grain Elevator Superintendent Grain Elevator Superintendent No Deficits Identified M6 OT- IP Functional Cognition Start: 08/23/23 08:55 Freq: Status: Active Protocol: Document 08/23/23 08:55 [facility] (Rec: 08/23/23 09:05 [facility] [id number]) Cognitive Factors Limiting Selfcare Function Cognitive Ability Level of Alertness Alert Patient Orientation Name,Age,Birthday,Month,Date, Year,Day of Week,Place, Situation Attention Span Ability Capable of Focused Attention, Capable of Sustained Attention Ability to Follow Commands Able to Follow Multi-Step Commands Memory Description No Deficits Noted Safety Awareness No Deficits Noted Problem Solving Ability No deficits Noted Executive Function Ability No Deficits Noted Abstract Thinking Ability No Deficits Noted Cognitive Comments Cognitive Assessment Comments Pt scored 38 seconds on Scurry Making Part B which implied normal for visual attention, speed of processing, task switching, mental flexibility, and executive functioning. Pt scored for her age is above the 90th percentile. Pt is intact for cognitive needs. OT- Vision and Hearing OT- Hearing Assessment OT- Hearing Assessment WFL OT- Vision Assessment Visual Acuity Glasses For Reading Visual Attentiveness WFL Occular Pursuits WFL M7 OT- IP Mobility and Balance Start: 08/23/23 08:55 Freq: Status: Active Protocol: Document 08/23/23 08:55 [facility] (Rec: 08/23/23 09:05 [facility] [id number]) OT-Transfer Assessment Sit to and From Stand Sit to and from Stand Independent Comments Mobility Comments Pt has been moving independently in the room on her own. OT- Balance Assessment Sitting Balance and Reactions Static Sitting Balance Ability Normal Dynamic Sitting Balance Ability Normal M8 OT- IP Objective Assessments Start: 08/23/23 08:55 Freq: Status: Active Protocol: Document 08/23/23 08:55 [facility] (Rec: 08/23/23 09:05 [facility] [id number]) OT Gross Range of Motion Upper Extremity Range of Motion Assessment Within Functional Limits OT Strength Upper Extremity Strength Assessment Within Functional Limits M9 OT- IP Assessment and Plan Start: 08/23/23 08:55 Freq: Status: Active Protocol: Document 08/23/23 08:55 [facility] (Rec: 08/23/23 09:05 [facility] [id number]) OT Summary Assessment and Plan Potential Rehabilitation Potential Excellent Analytic Complexity at Evaluation Low Summary Progress Towards Goals Safe For Discharge Assessment Summary Pt low complexity and here due to transient confusion which has clearly up. Pt scored 38 seconds on Scurry Making Part B which implies normal for visual attention, speed of processing, mental flexibility, task switching, and executive functioning. Pt to go home today and has not further OT needs. Discharge Recommendations Transportation Needs at Discharge Private Vehicle
--- NOTE | 2023-08-23 11:06 | CM.DANOTE ---
Patient is a 78 yo female who was admitted OBS Status on 08/22/23 for Dizziness. Pt has [facility] for insurance and her PCP is at [facility] but cannot remember which PCP. EMR was reviewed. Per MD, pt's symptoms have resolved and imaging normal and pt medically stable to discharge home today with no identified barriers to discharge. Per RN, pt indep in room and steady and no concerns noted at this time and planning to provide discharge instructions to patient soon. SW met briefly bedside with pt and explained role as pt getting ready for discharge and pt confirms she lives independently in [place] and very active at baseline and does not use DME for ambulation, drives, participates in community outreach and does not anticipate any discharge needs and preference is home today via likely friend POV. Pt denies any hx of HH or SNF. Plan: Patient to discharge home today via POV and outpt f/u and no further SW needs at this time. [facility] Discharge Planning/Care Management Advanced directive, confirm from FAMILY Start: 08/22/23 14:56 Freq: Q24H Status: Active Protocol: Document 08/22/23 14:56 EV (Rec: 08/22/23 14:57 EV [id number]) Advance Directive, confirm on record Time 14:57 Person contacted patient Copy received No CM Discharge Assessment Start: 08/23/23 11:04 Freq: Status: Active Protocol: Document 08/23/23 11:04 BF (Rec: 08/23/23 11:05 BF [id number]) Discharge Planning Assessment Assigned Morning Nanny ARIE Salas DPOA/Assigned Designee Name Rosario Melendez Contact Information [phone] Advance Directives? Yes Advance Directives on File No History Provided By Patient,Medical Record Has Patient been admitted in last 30 No days? Prior Living Arrangements House Comment Co housing community in [place] Household Members none Type of transporation used prior to Drives own vehicle admit Independent with ADL's Yes Is patient alert and oriented? Yes Caregiver for Another No Barriers to Discharge No Discharge Plan Home Transportation Arrangement friend to provide transport at d/c Referrals Initiated None needed Whiteboard Updated in Patient Room with Yes name and ext. # of Morning Nanny Review Status In Process Please Provide Date Initial DC 08/23/23 Assessment Was Performed Next Review Type Continued Stay Review
== END 2023-08-23 10:00 | disposition home or self-care (01) ==
LOC: ED 13:05 → AC 13:29
PROVIDERS: Admitting Provider Hospitalist; Emergency Provider Emergency Medicine; Referring Provider Emergency Medicine; Visit Provider Hospitalist
DX: R42 Dizziness and giddiness (principal); R41.0 Disorientation, unspecified; N83.209 Unspecified ovarian cyst, unspecified side
CPT/HCPCS: 36415; 70450; 70496; 70498; 70551; 71045; 80048; 80053; 80305; 82550; 82962; 83735; 84484; 85025; 85610; 85730; 93005; 93306; 96372; 97161; 97165; 99285; 99291; G0378; J1644; Q9967